=== PATIENT | female | born 1990 | race Caucasian/White ===

== ENCOUNTER 2020-08-09 17:42 | Inpatient (IN) | payer BC, OTHER ==
[~2020-08-09] VITALS: Ht 157.5 cm; Wt 70.3 kg
[2020-08-09 19:16] LABS: HEMOGLOBIN 9.2 gm/dl (12.3-15.3); RED BLOOD COUNT 3.36 M/UL (4.00-5.10); WHITE BLOOD COUNT 8.3 K/UL (4.5-11.0)
[2020-08-10] MEDS ORDERED: URSODIOL250 MG PO (06:37)
[2020-08-11 06:34] LABS: HEMOGLOBIN 8.8 gm/dl (12.3-15.3)
== END 2020-08-11 17:29 | disposition home or self-care (01) | DRG 805 ==
LOC: GENOP 17:42 → OB 08-10 06:37
PROVIDERS: ADMIT Obstetrics & Gynecology
PROC: 10907ZC Drainage of Amniotic Fluid, Therapeutic from Products of Conception, Via Natural or Artificial Opening (ICD-10-PCS; principal; 2020-08-10)
PROC: 10E0XZZ Delivery of Products of Conception, External Approach (ICD-10-PCS; 2020-08-10)
PROC: 0KQM0ZZ Repair Perineum Muscle, Open Approach (ICD-10-PCS; 2020-08-10)
PROC: 4A1HX4Z Monitoring of Products of Conception, Cardiac Electrical Activity, External Approach (ICD-10-PCS; 2020-08-10)
DX: O26.62 Liver and biliary tract disorders in childbirth (principal); K83.1 Obstruction of bile duct; Z37.0 Single live birth; Z3A.37 37 weeks gestation of pregnancy; O99.824 Streptococcus B carrier state complicating childbirth; O70.1 Second degree perineal laceration during delivery; Z20.822 Contact with and (suspected) exposure to COVID-19
CPT/HCPCS: 51702; 81001; 82800; 85014; 85018; 85025; 90471; 90686; 90715; G0008; J2405; J2590; J7120; U0002